=== PATIENT | female | born 1970 | race Caucasian/White ===

== ENCOUNTER 2024-03-29 04:33 | Day surgery (SDC) | payer OTHER ==
[~2024-03-29] VITALS: Ht 160 cm; Wt 100.0 kg
[2024-03-29] VITALS (202 sets, daily range): BP systolic 83–163; BP diastolic 45–102
[2024-03-29] MEDS ORDERED: diazePAM 5 MG/TAB PO PRN ×2 (07:30→08:30)
[2024-03-29] MEDS ORDERED: FAMOTIDINE 20 MG/TAB PO PRN (07:30)
[2024-03-29] MEDS ORDERED: CYANOCOBALAMIN 500 MCG/TAB ( B12) PO PRN (07:30)
[2024-03-29] MEDS ORDERED: PANTOPRAZOLE SODIUM Sesquihydr 40 MG/TAB PO PRN (07:30)
[2024-03-29] MEDS ORDERED: SCOPOLAMINE 1.5 MG DIS TD PRN (07:30)
[2024-03-29] MEDS ORDERED: LACTATED RINGER'S 1,000 ML IV PRN ×3 (07:30→19:00)
[2024-03-29] MEDS ORDERED: cloNIDine HCL 0.1 MG/TAB PO PRN (07:30)
[2024-03-29] MEDS ORDERED: ALBUTEROL SULFATE 2.5 MG VIAL IN PRN (07:30)
[2024-03-29] MEDS ORDERED: ASCORBIC ACID 4,000 MG in SODIUM CHLORIDE 0.9% 1,000 ML IV SCH (08:00)
[2024-03-29 09:06] LABS: BASO% 0.4 % (0-3); EOS% 1.3 % (0-8); HEMOGLOBIN 13.9 g/dl (12.0-16.0); IMMATURE GRANULOCYTES 0.1 % (0.0-5.0); LYMPH% 26.5 % (15-41); MEAN CELL VOLUME 90.7 fL CALC (80.0-100.0); MEAN CORPUSCULAR HGB CONC 33.1 g/dL CAL (32.0-36.0); MONO% 7.6 % (2-13); NEUT# 6.97 thou/uL (2.00-7.15); NEUT% 64.1 % (42-76); RED BLOOD COUNT 4.63 mill/uL (4.20-5.60); RED CELL DISTRI WIDTH 12.1 % (11.5-15.5)
[2024-03-29] MEDS ORDERED: CHELATED MAGNE100 MG PO (09:13)
[2024-03-29 09:18] LABS: BILIRUBIN, TOTAL 0.2 mg/dL (0.02-1.3); CREATININE 0.6 mg/dL (0.5-1.0); POTASSIUM 4.4 mmol/l (3.5-5.1); TOTAL PROTEIN 6.3 g/dL (6.3-8.2)
[2024-03-29] MEDS ORDERED: cloNIDine HYDROCHLORIDE 100 MCG/ML 10 ML INJ IV PRN (09:50)
[2024-03-29] MEDS ORDERED: PROPOFOL 10 MG/ML 100ML VIAL IV PRN (09:50)
[2024-03-29] MEDS ORDERED: THIAMINE HCL 100 MG/ML 2ML VIAL IV PRN (09:50)
[2024-03-29] MEDS ORDERED: PROPOFOL 100 ML IV PRN (09:50)
[2024-03-29] MEDS ORDERED: NALTREXONE HCL 50 MG/TAB VT PRN (09:50)
[2024-03-29] MEDS ORDERED: LIDOCAINE HCL 1% (10MG/ML) 100 MG/10 ML MDV VT PRN ×2 (09:50)
[2024-03-29] MEDS ORDERED: DiphenhydrAMINE HCL 50 MG/ML SDV IV PRN (09:50)
[2024-03-29] MEDS ORDERED: DEXAMETHASONE SODIUM PHOSPHATE PF 10 MG/ML SDV IV PRN ×2 (09:50→19:00)
[2024-03-29] MEDS ORDERED: SUCCINYLCHOLINE CHLORIDE 20 MG/ML 10ML VIAL IV PRN (09:50)
[2024-03-29] MEDS ORDERED: MIDAZOLAM HCL 2 MG/2 ML VIAL IV PRN (09:50)
[2024-03-29] MEDS ORDERED: STERILE WATER FOR IRRIGATION 1,000 ML BTL IR PRN (09:50)
[2024-03-29] MEDS ORDERED: OCTREOTIDE ACETATE 100 MCG/VIAL SDV SC PRN (09:50)
[2024-03-29] MEDS ORDERED: cloNIDine HCL 0.1 MG/TAB VT PRN (09:50)
[2024-03-29] MEDS ORDERED: LIDOCAINE HCL 1% (10MG/ML) 100 MG/10 ML MDV IV PRN (09:50)
[2024-03-29] MEDS ORDERED: MAGNESIUM SULFATE HEPTAHYDRATE 100 ML IV PRN (09:50)
[2024-03-29] MEDS ORDERED: ONDANSETRON HCl 4 MG/2 ML SDV IV PRN ×3 (09:50→19:00)
[2024-03-29] MEDS ORDERED: diazePAM 5 MG/TAB VT PRN (09:50)
[2024-03-29] MEDS ORDERED: ROCURONIUM BROMIDE 10 MG/ML 5ML VIAL IV PRN (09:50)
[2024-03-29] MEDS ORDERED: POTASSIUM CHLORIDE 10 MEQ/50 ML BAG IV PRN (09:50)
[2024-03-29] MEDS ORDERED: NALTREXONE50 MG PO (12:25)
[2024-03-29] MEDS ORDERED: CLONIDINE0.1 MG PO (12:25)
[2024-03-29] MEDS ORDERED: KLONOPIN2 MG PO (12:25)
[2024-03-29] MEDS ORDERED: HALOPERIDOL LACTATE 5 MG/ML SDV IV PRN (19:00)
[2024-03-29] MEDS ORDERED: LORazepam 2 MG/ML IV PRN ×2 (19:00)
[2024-03-29] MEDS ORDERED: PROMETHAZINE HCL 25 MG in SODIUM CHLORIDE 0.9% 50 ML IV PRN (19:00)
[2024-03-29] MEDS ORDERED: ACETAMINOPHEN 500 MG TAB PO PRN (19:00)
[2024-03-29] MEDS ORDERED: PROMETHAZINE HCL 12.5 MG in SODIUM CHLORIDE 0.9% 50 ML IV PRN (19:00)
[2024-03-29] MEDS ORDERED: ACETAMINOPHEN 1,000 MG/100 ML VIAL IV PRN (19:00)
[2024-03-29] MEDS ORDERED: KETOROLAC TROMETHAMINE 30 MG/ML SDV IV PRN (19:00)
[2024-03-29] MEDS ORDERED: PATIENT' OWN MED CONTROLLED 1 EA DOSE IV PRN (21:00)
[2024-03-29] MEDS ORDERED: cloNIDine HCL 0.1 MG/TAB PO SCH (23:00)
[2024-03-29] MEDS ORDERED: clonazePAM 1 MG/TAB PO PRN (23:00)
[2024-03-30] VITALS (29 sets, daily range): BP systolic 106–173; BP diastolic 61–116
[2024-03-30] MEDS ORDERED: cloNIDine HCL 0.1 MG/TAB PO PRN (04:00)
[2024-03-30] MEDS ORDERED: clonazePAM 1 MG/TAB PO PRN ×3 (04:00→14:50)
[2024-03-30 05:10] LABS: BASO% 0.1 % (0-3); HEMATOCRIT 39.2 % (37.0-47.0); HEMOGLOBIN 13.3 g/dl (12.0-16.0); IMMATURE GRANULOCYTES 0.3 % (0.0-5.0); LYMPH% 8.9 % (15-41); MEAN CELL VOLUME 88.3 fL CALC (80.0-100.0); MEAN CORPUSCULAR HGB CONC 33.9 g/dL CAL (32.0-36.0); NEUT# 13.06 thou/uL (2.00-7.15); NEUT% 89.7 % (42-76); RED BLOOD COUNT 4.44 mill/uL (4.20-5.60); RED CELL DISTRI WIDTH 11.9 % (11.5-15.5)
[2024-03-30 05:38] LABS: ALBUMIN 4.1 g/dL (3.2-5.0); CREATININE 0.6 mg/dL (0.5-1.0); MAGNESIUM 1.8 mg/dL (1.6-2.3); TOTAL PROTEIN 6.4 g/dL (6.3-8.2)
[2024-03-30 05:46] LABS: BILIRUBIN, TOTAL 0.6 mg/dL (0.02-1.3)
[2024-03-30] MEDS ORDERED: cloNIDine HCL 0.1 MG/TAB PO SCH ×2 (08:00→21:00)
[2024-03-30] MEDS ORDERED: NALTREXONE HCL 50 MG/TAB PO SCH (08:00)
[2024-03-30] MEDS ORDERED: PANTOPRAZOLE SODIUM Sesquihydr 40 MG/TAB PO SCH (08:00)
[2024-03-30] MEDS ORDERED: ACETAMINOPHEN 325 MG/TAB PO SCH (08:00)
[2024-03-30] MEDS ORDERED: HALOPERIDOL LACTATE 5 MG/ML SDV IV ONE (08:40)
[2024-03-30] MEDS ORDERED: MAGNESIUM OXIDE 400 MG/TAB PO PRN (09:00)
[2024-03-30] MEDS ORDERED: MAGNESIUM SULFATE HEPTAHYDRATE 50 ML IV SCH (09:00)
[2024-03-30] MEDS ORDERED: ACETAMINOPHEN 500 MG TAB PO PRN (09:00)
[2024-03-30] MEDS ORDERED: Cholecalciferol 2,000 UNIT/TAB PO PRN (09:00)
[2024-03-30] MEDS ORDERED: NALTREXONE HCL 50 MG/TAB PO ONE (11:25)
[2024-03-30] MEDS ORDERED: cloNIDine HCL 0.1 MG/TAB PO ONE (11:25)
[2024-03-30] MEDS ORDERED: diazePAM 10 MG/2 ML VIAL IV ONE (13:05)
[2024-03-30] MEDS ORDERED: KETOROLAC TROMETHAMINE 30 MG/ML SDV IV PRN (14:55)
[2024-03-30] MEDS ORDERED: ACETAMINOPHEN 325 MG/TAB PO PRN (14:55)
[2024-03-30] MEDS ORDERED: BISMUTH SUBSALICYLATE 262 MG CHW PO PRN (14:55)
[2024-03-30] MEDS ORDERED: LACTATED RINGER'S 1,000 ML IV PRN (15:00)
[2024-03-30] MEDS ORDERED: HALOPERIDOL LACTATE 5 MG/ML SDV IV PRN ×2 (15:05→16:45)
[2024-03-31] VITALS (68 sets, daily range): BP systolic 82–149; BP diastolic 43–78
[2024-03-31 05:54] LABS: HEMATOCRIT 40.2 % (37.0-47.0); HEMOGLOBIN 13.4 g/dl (12.0-16.0); MEAN CELL VOLUME 88.7 fL CALC (80.0-100.0); MEAN CORPUSCULAR HGB 29.6 pG CALC (26.0-32.0); MEAN CORPUSCULAR HGB CONC 33.3 g/dL CAL (32.0-36.0); RED BLOOD COUNT 4.53 mill/uL (4.20-5.60); RED CELL DISTRI WIDTH 12.4 % (11.5-15.5)
[2024-03-31 06:08] LABS: ALBUMIN 4.2 g/dL (3.2-5.0); CREATININE 0.6 mg/dL (0.5-1.0); MAGNESIUM 1.7 mg/dL (1.6-2.3); POTASSIUM 3.3 mmol/l (3.5-5.1); TOTAL PROTEIN 6.6 g/dL (6.3-8.2)
[2024-03-31 06:09] LABS: BILIRUBIN, TOTAL 0.9 mg/dL (0.02-1.3)
[2024-03-31] MEDS ORDERED: NALTREXONE HCL 50 MG/TAB PO SCH (08:00)
[2024-03-31] MEDS ORDERED: POTASSIUM CHLORIDE 20 MEQ/TAB PO SCH (08:30)
[2024-03-31] MEDS ORDERED: ACETAMINOPHEN 500 MG TAB PO PRN (16:55)
[2024-03-31] MEDS ORDERED: MAGNESIUM OXIDE 400 MG/TAB PO PRN (16:55)
[2024-03-31] MEDS ORDERED: Cholecalciferol 2,000 UNIT/TAB PO PRN (16:55)
[2024-04-01] MEDS ORDERED: IBUPROFEN 800 MG/TAB PO ONE
[2024-04-01 04:46] VITALS: BP 140/69
[2024-04-01 05:10] LABS: HEMATOCRIT 37.4 % (37.0-47.0); HEMOGLOBIN 12.6 g/dl (12.0-16.0); MEAN CELL VOLUME 87.8 fL CALC (80.0-100.0); MEAN CORPUSCULAR HGB 29.6 pG CALC (26.0-32.0); MEAN CORPUSCULAR HGB CONC 33.7 g/dL CAL (32.0-36.0); RED BLOOD COUNT 4.26 mill/uL (4.20-5.60); RED CELL DISTRI WIDTH 12.4 % (11.5-15.5)
[2024-04-01 05:15] LABS: ALBUMIN 3.6 g/dL (3.2-5.0); BILIRUBIN, TOTAL 0.9 mg/dL (0.02-1.3); CREATININE 0.6 mg/dL (0.5-1.0); MAGNESIUM 1.6 mg/dL (1.6-2.3); POTASSIUM 2.9 mmol/l (3.5-5.1); TOTAL PROTEIN 5.9 g/dL (6.3-8.2)
[2024-04-01 06:51] VITALS: BP 160/87
== END 2024-04-01 16:00 | disposition home or self-care (01) | DRG 897 ==
LOC: ANR 04:33 → MS2 04:35 → ANR 09:00 → MS2 19:00 → ICU 03-30 14:05 → MS2 03-31 12:06 → ANR 04-01 16:00
PROVIDERS: ATTEND Anesthesiology
DX: F11.20 Opioid dependence, uncomplicated (principal)
CPT/HCPCS: J0131; J1100; J2060; J2354; J3475; J3490